=== PATIENT | male | born 1980 ===

== ENCOUNTER 2022-10-31 07:29 | Emergency (ER) | payer MEDICAID, SELFPAY ==
--- NOTE | ~2022-10-31 | CT_ITS ---
EXAMINATION: CT HEAD AND FACIAL BONES WITHOUT CONTRAST CLINICAL INFORMATION: Pain status post fall. COMPARISON: None TECHNIQUE: Multiple axial images of the head and facial bones were obtained without the administration of intravenous contrast. Coronal and sagittal reformatted images were obtained. This CT examination was performed using dose optimization techniques as appropriate, variously including the following: *Automated exposure control *Adjustment of mA and/or kV according to patient size (this includes techniques or standardized protocols for targeted exams where dose is matched to indication/reason for exam; i.e. extremities or head) *Use of iterative reconstruction technique DLP: 804.26, 405.73 mGy-cm FINDINGS: Head: There is mild widening of the cortical sulci and associated ventriculomegaly. The lateral ventricles are symmetrical. The third and fourth ventricles are in their normal midline position. The basilar and prepontine cisterns are unremarkable. There is no acute intra or extracerebral abnormality. There is no mass effect or midline shift. Sections through the bony calvarium are unremarkable. Facial bones: The bony orbits, zygomatic arches, nasal bones, maxilla and mandible are intact. The orbital contents are within normal limits. The maxillary, ethmoid, sphenoid and frontal sinuses are clear. The osteomeatal complexes are patent and within normal limits. There is deviation of the nasal septum to the right. The visualized mastoid air cells are clear. Incidental hypoaeration of the right mastoid process. Sections through the bony calvarium are unremarkable. CT/CT head/brain wo IV con IMPRESSION: 1. No acute intracranial pathology. 2. No acute facial bone abnormality.
--- NOTE | ~2022-10-31 | CT_ITS ---
EXAMINATION: CT HEAD AND FACIAL BONES WITHOUT CONTRAST CLINICAL INFORMATION: Pain status post fall. COMPARISON: None TECHNIQUE: Multiple axial images of the head and facial bones were obtained without the administration of intravenous contrast. Coronal and sagittal reformatted images were obtained. This CT examination was performed using dose optimization techniques as appropriate, variously including the following: *Automated exposure control *Adjustment of mA and/or kV according to patient size (this includes techniques or standardized protocols for targeted exams where dose is matched to indication/reason for exam; i.e. extremities or head) *Use of iterative reconstruction technique DLP: 804.26, 405.73 mGy-cm FINDINGS: Head: There is mild widening of the cortical sulci and associated ventriculomegaly. The lateral ventricles are symmetrical. The third and fourth ventricles are in their normal midline position. The basilar and prepontine cisterns are unremarkable. There is no acute intra or extracerebral abnormality. There is no mass effect or midline shift. Sections through the bony calvarium are unremarkable. Facial bones: The bony orbits, zygomatic arches, nasal bones, maxilla and mandible are intact. The orbital contents are within normal limits. The maxillary, ethmoid, sphenoid and frontal sinuses are clear. The osteomeatal complexes are patent and within normal limits. There is deviation of the nasal septum to the right. The visualized mastoid air cells are clear. Incidental hypoaeration of the right mastoid process. Sections through the bony calvarium are unremarkable. CT/CT facial bones wo IV con IMPRESSION: 1. No acute intracranial pathology. 2. No acute facial bone abnormality.
--- NOTE | ~2022-10-31 | CT_ITS ---
EXAMINATION: CT CERVICAL SPINE WITHOUT CONTRAST CLINICAL INFORMATION: Neck pain status post fall. COMPARISON: None available. TECHNIQUE: Multiple axial images of the cervical spine were obtained without the administration of intravenous contrast. Coronal and sagittal reformatted images were obtained. This CT examination was performed using dose optimization techniques as appropriate, variously including the following: *Automated exposure control *Adjustment of mA and/or kV according to patient size (this includes techniques or standardized protocols for targeted exams where dose is matched to indication/reason for exam; i.e. extremities or head) *Use of iterative reconstruction technique DLP: 600.71 mGy-cm FINDINGS: The vertebral bodies and intervertebral disc spaces are unremarkable. The odontoid process is intact. The neural foramina are patent. The facet joints are unremarkable. The spinous and transverse processes are intact. The cervical soft tissues are unremarkable. No lymphadenopathy. The thyroid gland is unremarkable. The visualized lung apices are unremarkable. CT/CT cervical spine wo IV con IMPRESSION: Unremarkable cervical spine.
[2022-10-31 07:45] VITALS: BP 110/56; BP 117/76; PULSE 68; PULSE 80; RESP 16; TEMP 36.5; O2SAT 97; O2SAT 99; BMI 24.4
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
--- NOTE | 2022-10-31 08:32 | PC.NURSE ---
attempted 2x for IV access. pt refusing further attempts from other RN. aware. PCT will attempt blood work
--- NOTE | 2022-10-31 08:34 | MHC.EDTECH ---
this pct attempted to draw labs and patient refused RN AWARE PROVIDER AWARE
--- NOTE | 2022-10-31 08:44 | MHC.EDTECH ---
this pct attempted to draw labs with the assistance of another tech had to take the needle out because the patient didnt want me to try any further RN AWARE
== END 2022-10-31 12:08 | disposition home or self-care (01) ==
PROVIDERS: Emergency Provider Emergency Medicine Emergency Medical Services
DX: S09.90XA Unspecified injury of head, initial encounter (principal); R51.9 Headache, unspecified; M54.2 Cervicalgia; F14.90 Cocaine use, unspecified, uncomplicated; W01.10XA Fall on same level from slipping, tripping and stumbling with subsequent striking against unspecified object, initial encounter; Y93.9 Activity, unspecified; Y92.9 Unspecified place or not applicable; Y99.9 Unspecified external cause status
CPT/HCPCS: 70450; 70486; 72125; 99284